=== PATIENT | male | born 1990 | race Caucasian/White ===

== ENCOUNTER 2016-03-03 07:47 | Emergency (ER) | payer OTHER ==
--- NOTE | 2016-03-03 08:14 | EDDOCDS ---
Nurse's Notes [facility] Name: Juanjo Chavez Age: 25 yrs Sex: Male : 1990 Arrival Date: 03/03/2016 Time: 07:47 Bed I2 / M2 Private MD: Diagnosis: Epigastric pain;Esophagitis Presentation: 03/03 07:55 Presenting complaint: Patient states: "I have some chest pain, some nausea and some jc4 abdominal pain". Symptoms since last evening. Pt states "it felt like some heart burn and now it feels worse". Complains of epigastric pain that radiates to umbilical area. Denies any vomiting, no fever at home. Risk factors: the patient reports not having a history of previous torsion. Suicide/Homicide risk assessment- the patient denies having any suicidal and/or homicidal ideations and does not present with any other emotional, behavioral or mental health complaints. Status: The patient is an active duty patient services clerk. Transition of care: patient was not received from another setting of care. 07:55 Acuity: SANJIV Level 3 jc4 07:55 Method Of Arrival: Walkin/Carried/Asstd jc4 08:01 Adult Sepsis Screening: The patient does not have new or worsening altered mentation. jc4 Patient's respiratory rate is less than 22. Systolic blood pressure is greater than 100. Patient has a qSOFA score of 0- Negative Sepsis Screen. Triage Assessment: 07:58 General: Appears in no apparent distress. Pain: Pain currently is 8 out of 10 on a pain jc4 scale. Pt Declines HIV testing. GI: Reports cramping, epigastric pain, nausea, normal bowel habits. 08:01 Cardiovascular: Reports that he has a squeezing sensation on the outside of his chest. jc4 Denies any recent cough or cold. Historical: - Allergies: no known allergies; - Home Meds: 1. prazosin 2 mg Oral cap nightly (Last dose: 03/02/2016) 2. Vistaril 25 mg Oral cap 1 cap 4 times per day (Last dose: 03/02/2016) 3. Zoloft 100 mg Oral tab 1 tab once daily (Last dose: 03/02/2016) - PMHx: Anxiety; - PSHx: none; - Social history: Smoking status: Patient states was never smoker of tobacco. No barriers to communication noted, The patient speaks fluent Occitan. - Family history: Not pertinent. - : The pt / caregiver states he / she is not on anticoagulants. Home medication list is obtained from the patient. - Exposure Risk Screening:: None identified. Screenin:11 Screening information is obtained from the patient. Primary language is Occitan. Fall dls risk: No risks identified. Assistance ADL's: requires no assistance with activities of daily living. Abuse/DV Screen: The patient / caregiver reports he/she is: not in a situation that causes fear, pain or injury. There is an injury present. Nutritional screening: No deficits noted. Advance Directives: Currently, there is no health care proxy. There is no active DNR order. There is no living will. There is no Power of Antique Clock Repairer. Advance directive information has not previously been placed in an [facility] medical record. home support is adequate. Assessment: 08:10 General: Appears in no apparent distress, slender, well developed, well nourished, well dls groomed, Behavior is cooperative. Awake, alert, oriented. Skin warm and dry. Moves all extremities. Bilateral breath sounds clear. Respirations unlabored. Abdomen soft, non-tender. No apparent distress. The patient / caregiver is instructed regarding the plan of care and ED course. Physical assessment to be completed by PA/ELIZABETH. Vital Signs: 07:58 BP 135 / 69; Pulse 74; Resp 20; Temp 96.8(O); Pulse Ox 99% on R/A; Weight 87.54 kg; jc4 Height 72 in. (182.88 cm); Pain 8/10; 07:58 Body Mass Index 26.18 (87.54 kg, 182.88 cm) [facility] Vitals: 07:58 Log In Time: March 03, 2016 at 07:47. [facility] ED Course: 07:48 Patient visited by Rusty Garcia, Reg. pm4 07:48 Patient moved to Waiting pm4 07:57 Triage Initiated jc4 08:02 Coby Bell RN is Primary Nurse. jc4 08:02 Patient moved to I2 / M2 jc4 08:06 Ronaldo Ellison PA is PHCP. btw 08:06 Juarez Franks MD is Attending Physician. btw 08:06 Patient visited by Ronaldo Ellison PA. btw 08:09 [facility] is Referral Physician. btw 08:11 Patient has correct armband on for positive identification. Bed in low position. Call dls light in reach. 08:12 No IV's were initiated during this patient's visit. No procedures done that require dls assistance. Order Results: There are currently no results for this order. Outcome: 08:09 Discharge ordered by Provider. btw 08:11 The following High Risk Discharge criteria are identified: None. Discharged to home dls ambulatory. Condition: stable. Discharge instructions given to patient, Instructed on discharge instructions, follow up and referral plans. medication usage, Demonstrated understanding of instructions, medications, Pt was receptive of discharge instructions/ teaching. Prescriptions given X 1. No special radiology studies were completed. 08:12 Discharge Assessment: Patient awake, alert and oriented x 3. No cognitive and/or dls functional deficits noted. Patient verbalized understanding of disposition instructions. The following High Risk Discharge criteria are identified: None. Discharged to home ambulatory. Property sent home with patient. 08:13 Discharge Assessment: patient administered narcotics - no. dls 08:13 Patient left the ED. dls Signatures: Coby Bell, RN RN Ronaldo Christopher PA PA btw Castle, Jennifer RN RN jc4 Rusty Garcia, Reg Reg pm4 MARIA D
--- NOTE | 2016-03-03 08:14 | EDDOCDS ---
Physician Documentation [facility] Name: Juanjo Chavez Age: 25 yrs Sex: Male : 1990 Arrival Date: 03/03/2016 Time: 07:47 Bed I2 / M2 Private MD: Disposition: 03/03/16 08:09 Discharged to Home/Self Care. Impression: Epigastric pain, Esophagitis. - Condition is Stable. - Discharge Instructions: Esophagitis, Gastritis, Adult, [id number]. - Prescriptions for Carafate 1 gram Oral Tablet - take 2 tablet by ORAL route every 12 hours take on an empty stomach, beginning on waking and last dose at bedtime; 100 tablet. - Medication Reconciliation, Local Pharmacy Hours form. - Follow up: Roberta Guerra [facility]; When: Today; Reason: Recheck today's complaints. - Problem is new. - Symptoms are unchanged. Historical: - Allergies: no known allergies; - Home Meds: 1. prazosin 2 mg Oral cap nightly (Last dose: 03/02/2016) 2. Vistaril 25 mg Oral cap 1 cap 4 times per day (Last dose: 03/02/2016) 3. Zoloft 100 mg Oral tab 1 tab once daily (Last dose: 03/02/2016) - PMHx: Anxiety; - PSHx: none; - Social history: Smoking status: Patient states was never smoker of tobacco. No barriers to communication noted, The patient speaks fluent Chilean. - Family history: Not pertinent. - : The pt / caregiver states he / she is not on anticoagulants. Home medication list is obtained from the patient. - Exposure Risk Screening:: None identified. Vital Signs: 03/03 07:58 BP 135 / 69; Pulse 74; Resp 20; Temp 96.8(O); Pulse Ox 99% on R/A; Weight 87.54 kg / jc4 192.99 lbs; Height 72 in. (182.88 cm); Pain 8/10; 07:58 Body Mass Index 26.18 (87.54 kg, 182.88 cm) jc4 Signatures: Coby Bell RN Ronaldo Maldonado PA PA btw Olivia Stephenson RN RN jc4 MTDD
--- NOTE | 2016-03-05 09:14 | EDDOCDS ---
Nurse's Notes [facility] Name: Juanjo Chavez Age: 25 yrs Sex: Male : 1990 Arrival Date: 03/03/2016 Time: 07:47 Bed I2 / M2 Private MD: Diagnosis: Epigastric pain;Esophagitis Presentation: 03/03 07:55 Presenting complaint: Patient states: "I have some chest pain, some nausea and some jc4 abdominal pain". Symptoms since last evening. Pt states "it felt like some heart burn and now it feels worse". Complains of epigastric pain that radiates to umbilical area. Denies any vomiting, no fever at home. Risk factors: the patient reports not having a history of previous torsion. Suicide/Homicide risk assessment- the patient denies having any suicidal and/or homicidal ideations and does not present with any other emotional, behavioral or mental health complaints. Status: The patient is an active duty hvac services professional. Transition of care: patient was not received from another setting of care. 07:55 Acuity: SANJIV Level 3 jc4 07:55 Method Of Arrival: Walkin/Carried/Asstd jc4 08:01 Adult Sepsis Screening: The patient does not have new or worsening altered mentation. jc4 Patient's respiratory rate is less than 22. Systolic blood pressure is greater than 100. Patient has a qSOFA score of 0- Negative Sepsis Screen. Triage Assessment: 07:58 General: Appears in no apparent distress. Pain: Pain currently is 8 out of 10 on a pain jc4 scale. Pt Declines HIV testing. GI: Reports cramping, epigastric pain, nausea, normal bowel habits. 08:01 Cardiovascular: Reports that he has a squeezing sensation on the outside of his chest. jc4 Denies any recent cough or cold. Historical: - Allergies: no known allergies; - Home Meds: 1. prazosin 2 mg Oral cap nightly (Last dose: 03/02/2016) 2. Vistaril 25 mg Oral cap 1 cap 4 times per day (Last dose: 03/02/2016) 3. Zoloft 100 mg Oral tab 1 tab once daily (Last dose: 03/02/2016) - PMHx: Anxiety; - PSHx: none; - Social history: Smoking status: Patient states was never smoker of tobacco. No barriers to communication noted, The patient speaks fluent Bulgarian. - Family history: Not pertinent. - : The pt / caregiver states he / she is not on anticoagulants. Home medication list is obtained from the patient. - Exposure Risk Screening:: None identified. Screenin:11 Screening information is obtained from the patient. Primary language is Bulgarian. Fall dls risk: No risks identified. Assistance ADL's: requires no assistance with activities of daily living. Abuse/DV Screen: The patient / caregiver reports he/she is: not in a situation that causes fear, pain or injury. There is an injury present. Nutritional screening: No deficits noted. Advance Directives: Currently, there is no health care proxy. There is no active DNR order. There is no living will. There is no Power of Nuclear Powerplant Supervisor. Advance directive information has not previously been placed in an [facility] medical record. home support is adequate. Assessment: 08:10 General: Appears in no apparent distress, slender, well developed, well nourished, well dls groomed, Behavior is cooperative. Awake, alert, oriented. Skin warm and dry. Moves all extremities. Bilateral breath sounds clear. Respirations unlabored. Abdomen soft, non-tender. No apparent distress. The patient / caregiver is instructed regarding the plan of care and ED course. Physical assessment to be completed by PA/ELIZABETH. Vital Signs: 07:58 BP 135 / 69; Pulse 74; Resp 20; Temp 96.8(O); Pulse Ox 99% on R/A; Weight 87.54 kg; jc4 Height 72 in. (182.88 cm); Pain 8/10; 07:58 Body Mass Index 26.18 (87.54 kg, 182.88 cm) [facility] Vitals: 07:58 Log In Time: March 03, 2016 at 07:47. [facility] ED Course: 07:48 Patient visited by Rusty Garcia, Reg. pm4 07:48 Patient moved to Waiting pm4 07:57 Triage Initiated jc4 08:02 Coby Bell RN is Primary Nurse. jc4 08:02 Patient moved to I2 / M2 jc4 08:06 Ronaldo Ellison PA is PHCP. btw 08:06 Juarez Franks MD is Attending Physician. btw 08:06 Patient visited by Ronaldo Ellison PA. btw 08:09 [facility] is Referral Physician. btw 08:11 Patient has correct armband on for positive identification. Bed in low position. Call dls light in reach. 08:12 No IV's were initiated during this patient's visit. No procedures done that require dls assistance. 08:24 [facility] Payment Agreement was scanned into [employer] and attached to record. mm15 13:25 T-Sheet-- Draft Copy was scanned into [employer] and attached to record. gb Order Results: There are currently no results for this order. Outcome: 08:09 Discharge ordered by Provider. btw 08:11 The following High Risk Discharge criteria are identified: None. Discharged to home dls ambulatory. Condition: stable. Discharge instructions given to patient, Instructed on discharge instructions, follow up and referral plans. medication usage, Demonstrated understanding of instructions, medications, Pt was receptive of discharge instructions/ teaching. Prescriptions given X 1. No special radiology studies were completed. 08:12 Discharge Assessment: Patient awake, alert and oriented x 3. No cognitive and/or dls functional deficits noted. Patient verbalized understanding of disposition instructions. The following High Risk Discharge criteria are identified: None. Discharged to home ambulatory. Property sent home with patient. 08:13 Discharge Assessment: patient administered narcotics - no. dls 08:13 Patient left the ED. dls Signatures: Coby Bell, MECCA WING dls Yane Thomas, Reg Reg gb Ronaldo Ellison PA PA btw Castle, Jennifer, RN RN jc4 Walter Persaud mm15 Rusty Garcia, Reg Reg pm4 Chart Complete MTDD
--- NOTE | 2016-03-05 09:14 | EDDOCDS ---
Physician Documentation [facility] Name: Juanjo Chavez Age: 25 yrs Sex: Male : 1990 Arrival Date: 03/03/2016 Time: 07:47 Bed I2 / M2 Private MD: Disposition: 03/03/16 08:09 Discharged to Home/Self Care. Impression: Epigastric pain, Esophagitis. - Condition is Stable. - Discharge Instructions: Esophagitis, Gastritis, Adult, [id number]. - Prescriptions for Carafate 1 gram Oral Tablet - take 2 tablet by ORAL route every 12 hours take on an empty stomach, beginning on waking and last dose at bedtime; 100 tablet. - Medication Reconciliation, Local Pharmacy Hours form. - Follow up: Roberta Guerra [facility]; When: Today; Reason: Recheck today's complaints. - Problem is new. - Symptoms are unchanged. Historical: - Allergies: no known allergies; - Home Meds: 1. prazosin 2 mg Oral cap nightly (Last dose: 03/02/2016) 2. Vistaril 25 mg Oral cap 1 cap 4 times per day (Last dose: 03/02/2016) 3. Zoloft 100 mg Oral tab 1 tab once daily (Last dose: 03/02/2016) - PMHx: Anxiety; - PSHx: none; - Social history: Smoking status: Patient states was never smoker of tobacco. No barriers to communication noted, The patient speaks fluent [place] Helen[place]. - Family history: Not pertinent. - : The pt / caregiver states he / she is not on anticoagulants. Home medication list is obtained from the patient. - Exposure Risk Screening:: None identified. Vital Signs: 03/03 07:58 BP 135 / 69; Pulse 74; Resp 20; Temp 96.8(O); Pulse Ox 99% on R/A; Weight 87.54 kg / jc4 192.99 lbs; Height 72 in. (182.88 cm); Pain 8/10; 07:58 Body Mass Index 26.18 (87.54 kg, 182.88 cm) jc4 MDM: 08:24 Financial registration complete. mm15 08:24 [facility] Payment Agreement was scanned into [employer] and attached to record. mm15 13:25 T-Sheet-- Draft Copy was scanned into [employer] and attached to record. gb Signatures: Coby Bell, RN RN dls Yane Thomas, Reg Reg gb Ronaldo Ellison PA PA btw Olivia Stephenson RN RN jc4 Walter Persaud mm15 The chart was reviewed and I authenticate all verbal orders and agree with the evaluation and treatment provided.Attachments: 08:24 [facility] Payment Agreement mm15 13:25 T-Sheet-- Draft Copy Chart Complete MTDD
--- NOTE | 2016-03-05 09:14 | EDDOCDS ---
Physician Documentation [facility] Name: Juanjo Chavez Age: 25 yrs Sex: Male : 1990 Arrival Date: 03/03/2016 Time: 07:47 Bed I2 / M2 Private MD: Disposition: 03/03/16 08:09 Discharged to Home/Self Care. Impression: Epigastric pain, Esophagitis. - Condition is Stable. - Discharge Instructions: Esophagitis, Gastritis, Adult, [id number]. - Prescriptions for Carafate 1 gram Oral Tablet - take 2 tablet by ORAL route every 12 hours take on an empty stomach, beginning on waking and last dose at bedtime; 100 tablet. - Medication Reconciliation, Local Pharmacy Hours form. - Follow up: Roberta Guerra [facility]; When: Today; Reason: Recheck today's complaints. - Problem is new. - Symptoms are unchanged. Historical: - Allergies: no known allergies; - Home Meds: 1. prazosin 2 mg Oral cap nightly (Last dose: 03/02/2016) 2. Vistaril 25 mg Oral cap 1 cap 4 times per day (Last dose: 03/02/2016) 3. Zoloft 100 mg Oral tab 1 tab once daily (Last dose: 03/02/2016) - PMHx: Anxiety; - PSHx: none; - Social history: Smoking status: Patient states was never smoker of tobacco. No barriers to communication noted, The patient speaks fluent Maltese. - Family history: Not pertinent. - : The pt / caregiver states he / she is not on anticoagulants. Home medication list is obtained from the patient. - Exposure Risk Screening:: None identified. Vital Signs: 03/03 07:58 BP 135 / 69; Pulse 74; Resp 20; Temp 96.8(O); Pulse Ox 99% on R/A; Weight 87.54 kg / jc4 192.99 lbs; Height 72 in. (182.88 cm); Pain 8/10; 07:58 Body Mass Index 26.18 (87.54 kg, 182.88 cm) jc4 MDM: 08:24 Financial registration complete. mm15 08:24 [facility] Payment Agreement was scanned into [employer] and attached to record. mm15 13:25 T-Sheet-- Draft Copy was scanned into [employer] and attached to record. gb Signatures: Coby Bell, RN RN dls Yane Thomas, Reg Reg gb Ronaldo Ellison PA PA btw Olivia Stephenson RN RN jc4 Walter Persaud mm15 The chart was reviewed and I authenticate all verbal orders and agree with the evaluation and treatment provided.Attachments: 08:24 [facility] Payment Agreement mm15 13:25 T-Sheet-- Draft Copy Chart Complete MTDD
== END 2016-03-03 08:13 | disposition home or self-care (01) ==
LOC: M ED 07:47
DX: R10.13 Epigastric pain (principal); F41.9 Anxiety disorder, unspecified; Z79.899 Other long term (current) drug therapy

== ENCOUNTER 2016-10-15 07:16 | Emergency (ER) | payer OTHER ==
[~2016-10-15] VITALS: Ht 182.9 cm; Wt 89.5 kg
[2016-10-15] MEDS ORDERED: PRAZ2CAP PO (07:39)
[2016-10-15] MEDS ORDERED: SERT-138 PO (07:39)
[2016-10-15] MEDS ORDERED: HYDR-643 PO (07:39)
[2016-10-15] MEDS ORDERED: BUSP10TA PO (07:39)
[2016-10-15] MEDS ORDERED: ESZO1TAB PO (07:39)
[2016-10-15] MEDS ORDERED: IBUP-1022 PO (09:01)
[2016-10-15 09:13] VITALS: BP 118/68
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
== END 2016-10-15 09:42 | disposition home or self-care (01) ==
LOC: M ED 07:16
DX: S59.901A Unspecified injury of right elbow, initial encounter (principal); T14.8 Other injury of unspecified body region; V48.0XXA Car driver injured in noncollision transport accident in nontraffic accident, initial encounter; Y92.89 Other specified places as the place of occurrence of the external cause; Y93.9 Activity, unspecified; Y99.9 Unspecified external cause status; Z79.899 Other long term (current) drug therapy